=== PATIENT | male | born 1965 | race Caucasian/White ===

== ENCOUNTER → 2021-08-30 | Emergency (ER) | payer MEDICAID ==
[~2021-08-30] VITALS: Ht 172.7 cm; Wt 86.4 kg
[~2021-08-30] MED LIST: IBUP-1984 PO
[2021-08-30 11:31] VITALS: BP 142/86
== END | disposition left against medical advice (07) ==
LOC: ER 11:29
DX: M79.645 Pain in left finger(s) (principal); F12.90 Cannabis use, unspecified, uncomplicated; Z72.89 Other problems related to lifestyle; Z98.890 Other specified postprocedural states; Z79.899 Other long term (current) drug therapy; Z53.21 Procedure and treatment not carried out due to patient leaving prior to being seen by health care provider